=== PATIENT | male | born 1975 | race Caucasian/White ===

== ENCOUNTER 2023-04-04 15:18 | Outpatient (CLI) | payer OTHER ==
--- NOTE | 2023-04-04 16:01 | XRAY Report ---
PROCEDURE: Lumbar Spine 2 View INDICATIONS: LOW BACK PAIN, BILATERAL KNEE PAIN TECHNIQUE: 2 views of the lumbar spine were acquired. COMPARISON: None. FINDINGS: Bones: 5 [id number] vertebrae are present. There is normal bony alignment. No vertebral body compression fractures. No suspicious bony lesions. Mild degenerative changes with mild anterior cyt osis. Facet arthropathy at L4-5 and L5-S1. Disc heights are relatively preserved. Soft tissues: Overlying bowel gas pattern is normal. No suspicious soft tissue calcifications. IMPRESSION: Mild degenerative changes with facet arthropathy at L4-L5 and L5-S1. No acute fractures. Reviewed by: Micha Lomeli MD on 04/04/2023 4:00 PM PDT Approved by: Micha Lomeli MD on 04/04/2023 4:00 PM PDT Station ID: [id number]
--- NOTE | 2023-04-04 16:02 | XRAY Report ---
PROCEDURE: Knee 3 View BILAT INDICATIONS: LOW BACK PAIN, BILATERAL KNEE PAIN TECHNIQUE: 4 views of the bilateral knee(s) were acquired. COMPARISON: None. FINDINGS: Bones: No fractures or dislocations. No suspicious bony lesions. Tricompartmental arthritic changes of the knee with mild medial joint space narrowing. Mild marginal osteophytosis is present. Soft tissues: No knee joint effusion. No suspicious soft tissue calcifications or masses. IMPRESSION: Mild tricompartmental osteoarthritic changes of the knees with mild joint space narrowing in the medi al compartments bilaterally. Reviewed by: Micha Lomeli MD on 04/04/2023 4:01 PM PDT Approved by: Micha Lomeli MD on 04/04/2023 4:01 PM PDT Station ID: [id number]
== END 2023-04-04 15:19 | disposition home or self-care (01) ==
LOC: DI 15:18
PROVIDERS: ATTEND Internal Medicine
DX: M17.0 Bilateral primary osteoarthritis of knee (principal); M47.816 Spondylosis without myelopathy or radiculopathy, lumbar region; M47.817 Spondylosis without myelopathy or radiculopathy, lumbosacral region